=== PATIENT | female | born 1990 | race Two or more races ===

== ENCOUNTER 2023-03-09 19:28 | Emergency (ER) | payer MEDICAID, OTHER ==
[~2023-03-09] VITALS: Ht 152.4 cm; Wt 84.9 kg
[2023-03-09 19:48] VITALS: BP 128/81; PULSE 95; RESP 20; O2SAT 99
[2023-03-09 20:04] LABS: Urine WBC None Seen /hpf (0 - 5)
[2023-03-09 20:35] LABS: Urine Bacteria NONE SEEN /hpf (None Seen); Urine Blood Negative /uL (Negative); Urine Budding Yeast FEW /hpf (None Seen); Urine Clarity HAZY (Clear); Urine Color Colorless (Yellow); Urine Protein, UAD Negative (Negative); Urine Specific Gravity 1.009 (1.001-1.035); Urine Urobilinogen Normal (Negative); Urine pH 7.5 (5.0-8.0)
== END 2023-03-09 19:52 | disposition left against medical advice (07) ==
LOC: EDBD 19:28 → ER 19:35
DX: R10.13 Epigastric pain (principal); R11.2 Nausea with vomiting, unspecified; Z53.21 Procedure and treatment not carried out due to patient leaving prior to being seen by health care provider
CPT/HCPCS: 81001; 81025